=== PATIENT | male | born 1970 | race Caucasian/White ===

== ENCOUNTER → 2020-07-28 | Outpatient (CLI) | payer BC, OTHER ==
[~2020-07-28] MED LIST: HYDROCODON-ACE1 EAC2 PO; LISINOPRIL-HCT1 EAC1 PO; NEURONTIN600 MG PO; OMEPRAZOLE20 M1 PO
== END ==
LOC: KOH-I 08:42
DX: M79.672 Pain in left foot (principal); M79.671 Pain in right foot
CPT/HCPCS: 73630

== ENCOUNTER → 2020-08-19 | Outpatient (CLI) | payer MEDICARE, OTHER ==
[2020-08-19 09:58] LABS: HEMOGLOBIN 15.7 gm/dl (14.0-17.5); RED BLOOD COUNT 4.98 M/UL (4.20-5.50); WHITE BLOOD COUNT 5.8 K/UL (4.5-11.0)
[2020-08-19 10:20] LABS: BUN/CREATININE RATIO 19 (0-10)
== END ==
LOC: OPSV2 08:00
PROVIDERS: Podiatrist Foot & Ankle Surgery
DX: Z01.812 Encounter for preprocedural laboratory examination (principal); M66.862 Spontaneous rupture of other tendons, left lower leg; M72.2 Plantar fascial fibromatosis
CPT/HCPCS: 36415; 80048; 82652; 85027

== ENCOUNTER → 2020-08-26 | Outpatient (CLI) | payer MEDICARE, OTHER | LOC: KOH-I 09:15 | DX: S86.112A Strain of other muscle(s) and tendon(s) of posterior muscle group at lower leg level, left leg, initial encounter (principal); M25.472 Effusion, left ankle | CPT/HCPCS: 73721 ==

== ENCOUNTER → 2020-08-31 | Day surgery (SDC) | payer MEDICARE, OTHER | END | disposition home or self-care (01) | LOC: OR 08-26 11:15 | DX: M21.42 Flat foot [pes planus] (acquired), left foot (principal); M67.972 Unspecified disorder of synovium and tendon, left ankle and foot; M25.375 Other instability, left foot; M21.072 Valgus deformity, not elsewhere classified, left ankle; M19.072 Primary osteoarthritis, left ankle and foot; I10 Essential (primary) hypertension; K21.9 Gastro-esophageal reflux disease without esophagitis; F32.9 Major depressive disorder, single episode, unspecified; F17.220 Nicotine dependence, chewing tobacco, uncomplicated; G47.30 Sleep apnea, unspecified; Z99.89 Dependence on other enabling machines and devices; Z79.899 Other long term (current) drug therapy | CPT/HCPCS: 73630; 76000; C1713; C1762; C1776; J0171; J0690; J1100; J1885; J2001; J2250; J2405; J2704; J2795; J3010; J3370; J7030; J7120; Q4133 ==

== ENCOUNTER → 2020-09-12 | Outpatient (CLI) | payer MEDICARE, OTHER | LOC: KOH-I 08:54 | DX: M24.672 Ankylosis, left ankle (principal); Z98.1 Arthrodesis status | CPT/HCPCS: 73610 ==

== ENCOUNTER → 2020-09-22 | Outpatient (CLI) | payer MEDICARE, OTHER | LOC: KOH-I 08:53 | DX: M24.675 Ankylosis, left foot (principal); Z98.890 Other specified postprocedural states | CPT/HCPCS: 73610 ==

== ENCOUNTER → 2020-10-03 | Outpatient (CLI) | payer MEDICARE, OTHER | LOC: KOH-I 13:21 | DX: M79.672 Pain in left foot (principal); Z98.1 Arthrodesis status | CPT/HCPCS: 73630 ==

== ENCOUNTER → 2020-10-18 | Outpatient (CLI) | payer MEDICARE, OTHER | LOC: KOH-I 13:45 | DX: Z47.89 Encounter for other orthopedic aftercare (principal); M21.42 Flat foot [pes planus] (acquired), left foot; M79.672 Pain in left foot | CPT/HCPCS: 73630 ==